=== PATIENT | male | born 1990 | race Caucasian/White ===

== ENCOUNTER 2017-08-19 11:09 | Emergency (ER) | payer OTHER ==
[~2017-08-19] VITALS: Ht 175.3 cm; Wt 72.6 kg
[2017-08-19] MEDS ORDERED: ONDANSETRON ODT8 MG PO (14:57)
[2017-08-19] MEDS ORDERED: PROMETHAZINE HC25 M1 PO (14:57)
== END 2017-08-19 15:46 | disposition home or self-care (01) ==
LOC: ED 11:09
DX: E86.0 Dehydration (principal); K52.9 Noninfective gastroenteritis and colitis, unspecified; F17.200 Nicotine dependence, unspecified, uncomplicated
CPT/HCPCS: 80053; 81001; 83690; 85025; 96374; 96375; 99283; J2405; J2550; J7030

== ENCOUNTER 2017-08-24 11:29 | Inpatient (IN) | payer OTHER ==
[~2017-08-24] VITALS: Ht 175.3 cm; Wt 72.1 kg
[~2017-08-24 11:29] MED LIST: ONDANSETRON ODT8 MG PO; PROMETHAZINE HC25 M1 PO
[2017-08-26] MEDS ORDERED: IBUPROFEN600 MG PO (11:15)
[2017-08-26] MEDS ORDERED: HYDROCODON-ACE1 EA10 PO (11:15)
[2017-08-26] MEDS ORDERED: MAPAP325 MG PO (11:15)
--- NOTE | 2017-08-30 14:12 | HP ---
[facility] [address], [place] [address] Signed ADMISSION DATE: 08/24/2017 REASON FOR ADMISSION: Acute acalculous cholecystitis. HISTORY OF PRESENT ILLNESS: This 27-year-old white man has had about 2 weeks of epigastric and right subcostal pain worsened after eating. He was seen in the emergency room today and evaluated by Dr. Pelayo. An ultrasound was performed showing findings consistent with acute acalculous cholecystitis including pericholecystic fluid, a laminated thickened gallbladder wall, but no evidence of stones. There was some minimal sludge. The patient and his tell me that he was seen about a week ago in the emergency room with dehydration and considered likely to have a viral illness myesha to those suffered by other family members at that time. His previous symptoms over the past 2 weeks, he has had some diarrhea it is noted, but no myalgias, fever, or other problem. His dominant problem even over the past 2 weeks has been epigastric and right subcostal pain. He denies subscapular pain on the right side. He is admitted for further evaluation and care. PAST MEDICAL HISTORY: Significant for appendectomy, which he tells me I performed when he was a child. As best he recalls, he was about 8 years old, which would be about 19 years ago. I must say time flies. I did not recognize him from his childhood particularly. He has no other ongoing medical problems and takes no medications. He does use marijuana. He does not smoke and denies alcohol use. Past medical history, in addition to appendectomy, has included kidney stones he says. SOCIAL HISTORY: He is unemployed. He was covered under [employer]. He has, in aggregate five children. His life partner is Kinga Ibanez, who attends to him at this time. His primary provider is Dr. Zach Childress. REVIEW OF SYSTEMS: He denies any shortness of breath or chest pain. He is rather thirsty. He has had no hematemesis or blood per rectum. Denies dysuria or hematuria. Electronically Signed By: GOMEZ STOUT MD 08/30/17 1412 PATIENT NAME: RAMON HORNER HISTORY AND PHYSICAL DATE OF : 86 REPORT #: [id number] PHYSICIAN: GOMEZ STOUT MD PCP: ZACH CHILDRESS REPORT IS CONFIDENTIAL AND NOT TO BE RELEASED WITHOUT AUTHORIZATION [facility] [address], [place] [address] Signed PHYSICAL EXAMINATION: GENERAL: A relatively muscular white man, who does not look systemically toxic at this time. He is rather pale in color and has several tattoos. He shows no evidence of jaundice. Mucous membranes are markedly dry. Trachea is midline. CHEST: Clear. HEART: Regular without murmur. ABDOMEN: Nondistended. There is no sign of ascites. He does have tenderness in the epigastric and right subcostal areas. EXTREMITIES: No clubbing, cyanosis, or edema. LABORATORY DATA: Show white count of 7.3, hematocrit 41.9, platelets 250,000. Electrolytes are normal. Liver enzymes showed bilirubin of 0.5, alkaline phosphatase of 59, AST of 30, ALT 39, alkaline phosphatase of 59. His abdominal ultrasound was performed shows a thickened gallbladder wall, but no evidence of stone. It is uncertain if there is debris within the lumen of the gallbladder. ASSESSMENT: The patient has clinical and ultrasonographic evidence of acute acalculous cholecystitis. He does have clinical dehydration at this time as well. We discussed in detail the pathophysiology of biliary disease both calculous and acalculous. I would recommend fluid resuscitation, parenteral pain medication, avoidance of oral intake other than some sips of liquids for comfort, anticipating more fluid resuscitation and cholecystectomy preferred by a laparoscopic approach. The risks of bleeding, infection, bile duct injury, need for open procedure, and of course failure to cure of his symptoms were reviewed in detail. It is more likely that he has had acute cholecystitis for the past 2 weeks and the flu as was presumed previously. We will anticipate operative intervention when the patient adequately resuscitated. Gomez Stout MD JM/MODL /[id number] Electronically Signed By: GOMEZ STOUT MD 08/30/17 1412 PATIENT NAME: RAMON HORNER HISTORY AND PHYSICAL DATE OF : [birth year] REPORT #: [id number] PHYSICIAN: GOMEZ STOUT MD PCP: ZACH CHILDRESS REPORT IS CONFIDENTIAL AND NOT TO BE RELEASED WITHOUT AUTHORIZATION [facility] [address] [place] [id number] Signed cc: Zahc Pelayo DO Copies: ZACH CHILDRESS JAMES ALAN DO ~ Electronically Signed By: GOMEZ STOUT MD 08/30/17 1412 PATIENT NAME: RAMON HORNER HISTORY AND PHYSICAL DATE OF : [birth year] REPORT #: [id number] PHYSICIAN: GOMEZ STOUT MD PCP: ZACH CHILDRESS REPORT IS CONFIDENTIAL AND NOT TO BE RELEASED WITHOUT AUTHORIZATION
--- NOTE | 2017-08-30 14:12 | DS ---
[facility] [address] [place], [place] [address] Signed ADMISSION DATE: 08/24/2017 DISCHARGE DATE: 08/26/2017 REASON FOR ADMISSION: This 27-year-old white man was admitted to the emergency room on August 24 with severe right upper abdominal pain. He has had pain more or less for over 2 weeks. He was thought to have the flu initially. His evaluation in the emergency room included gallbladder ultrasound confirming marked inflammation and edema of the gallbladder wall, but no stones. There is pericholecystic fluid as well. There is no sign of ductal dilatation. He was admitted for further evaluation and care, which included intravenous antibiotic administration, parental pain medication, fluid resuscitation, and anticipating cholecystectomy. PAST MEDICAL HISTORY: Includes appendectomy, which I performed at age 8 (19 years ago). He is otherwise in good health. PERTINENT PHYSICAL EXAMINATION: GENERAL: Muscular white male with multiple tattoos, accompanied by his significant other girlfriend. HEENT: Trachea is midline. CHEST: Clear. HEART: Regular without murmur. ABDOMEN: Nondistended. Marked tenderness is noted in the epigastric and right subcostal area. There is no ascites. EXTREMITIES: Show no clubbing, cyanosis, or edema. LABORATORY DATA: His white count was only mildly elevated to 11.5. Bilirubin was normal. Alkaline phosphatase was normal. AST and ALT slightly elevated. HOSPITAL COURSE: He was fluid resuscitated, given intravenous antibiotics and on August 25, 2017 on Sunday, he underwent laparoscopic cholecystectomy with intraoperative cholangiogram. He was found to have a markedly inflamed and thickened gallbladder with pericholecystic inflammation. The liver was normal. The cholangiogram was normal. The gallbladder once opened showed chronic and subacute inflammatory change of the mucosa, but no sign of stones or neoplasm. His postoperative course was completely unremarkable. He is able to eat solid food soon after operation. By day of discharge, he is ambulating well and tolerating a regular Electronically Signed By: GOMEZ STOUT MD 08/30/17 1412 PATIENT NAME: RAMON HORNER DISCHARGE SUMMARY DATE OF : 86 REPORT #: [id number] PHYSICIAN: GOMEZ STOUT MD PCP: ARIANA MARES REPORT IS CONFIDENTIAL AND NOT TO BE RELEASED WITHOUT AUTHORIZATION [facility] [address] [place], [place] [address] Signed diet. Incisions are healing nicely. He is having no problems. DISCHARGE MEDICATIONS: His discharge medications will include: 1. [place] 5/325, 1 to 2 p.o. q.4 hours p.r.n. pain, #10. 2. Ibuprofen 600 mg p.o. q.6 hours p.r.n. pain, #60. 3. Tylenol 650 mg p.o. q.6 hours p.r.n., #30. He will likely be able to discontinue Zofran and promethazine, which were prescribed previously for his nausea problem. DISCHARGE DIAGNOSES: 1. Acute acalculous cholecystitis, status post laparoscopic cholecystectomy with intraoperative cholangiogram on august 26, 2017. 2. Distant history of appendectomy (open appendectomy, age 8). FOLLOWUP PLAN: He is to return to see me in approximately 4 weeks or so. He is asked to avoid lifting more than 20 pounds for the next 2 weeks. He is permitted to shower tomorrow. We will keep Steri-Strips on. Gomez Stout MD JM/MODL /[id number] cc: FRANCISCO Bustos Dr. Copies: SAURABH BRIONES Electronically Signed By: GOMEZ STOUT MD 08/30/17 1412 PATIENT NAME: RAMON HORNER DISCHARGE SUMMARY DATE OF : 86 REPORT #: [id number] PHYSICIAN: GOMEZ STOUT MD PCP: ARIANA MARES REPORT IS CONFIDENTIAL AND NOT TO BE RELEASED WITHOUT AUTHORIZATION [facility] [address] [place], [place] [address] Signed MUNDO KHOURY Electronically Signed By: GOMEZ STOUT MD 08/30/17 1412 PATIENT NAME: RAMON HORNER DISCHARGE SUMMARY DATE OF : [birth year] REPORT #: [id number] PHYSICIAN: GOMEZ STOUT MD PCP: ARIANA MARES REPORT IS CONFIDENTIAL AND NOT TO BE RELEASED WITHOUT AUTHORIZATION
--- NOTE | 2017-08-30 14:12 | OR ---
[facility] [address] [place], [place] [address] Signed DATE OF OPERATION: 08/25/2017 SURGEON: Gomez Stout MD PREOPERATIVE DIAGNOSIS: Acute acalculous cholecystitis. POSTOPERATIVE DIAGNOSIS: Acute acalculous cholecystitis. PROCEDURES: 1. Laparoscopic cholecystectomy with intraoperative cholangiogram. 2. Laparoscopic lysis of adhesions. 3. Surgeon-directed fluoroscopy. ANESTHESIA: General endotracheal, Gomez Reese CRNA and local 10 mL of 0.25% Marcaine with epinephrine. INDICATION: This 27-year-old white male was admitted through the emergency room yesterday with severe right upper abdominal pain. He has had pain and problems for the past 2 weeks, initially thought likely to the flu. The gallbladder ultrasound performed in his evaluation in the emergency room confirmed an edematous gallbladder with pericholecystic fluid, but no stones and possible sludge. The liver enzymes were relatively normal. He was given intravenous fluids, parenteral pain medication, IV antibiotics and so forth and is admitted at this time to undergo cholecystectomy preferred by laparoscopic approach. The risks of bleeding, infection, bile duct injury, need for open procedure, failure to cure his symptoms and other unforeseen complications were reviewed in detail with him and his significant other. He wishes to proceed. FINDINGS: Indeed, the gallbladder was tensed and distended and acutely inflamed. There was pericholecystic fluid. The liver itself was normal. Impressive edema of the infundibulum of the gallbladder was noted. The gallbladder once excised showed chronic inflammatory changes in the mucosa, but no sign of stones or neoplasm. Intraoperative cholangiogram was normal. There were no other findings of concern, though he did have omental adhesions in the area of the right lower abdomen related to prior appendectomy I performed on him nearly 20 years ago. These were taken down with sharp dissection. Electronically Signed By: GOMEZ STOUT MD 08/30/17 1412 PATIENT NAME: RAMON HORNER OPERATIVE REPORT DATE OF : 86 REPORT #: [id number] PHYSICIAN: GOMEZ STOUT MD PCP: ARIANA MARES REPORT IS CONFIDENTIAL AND NOT TO BE RELEASED WITHOUT AUTHORIZATION [facility] [address] [facility] [place] [place] [address] Signed DESCRIPTION OF PROCEDURE: The patient was brought to the operating room, given a general endotracheal anesthetic. Preoperative antibiotic Ancef was given by the inspector metal fabricating. Sequential compression device stockings were in place and heparin subcutaneously administered. After satisfactory general endotracheal anesthesia, the abdomen was clipped and prepared with a chlorhexidine solution and draped sterilely. An infraumbilical incision was made and using an open Irving cannula technique, pneumoperitoneum was achieved to a level of 14 mmHg of carbon dioxide gas. Intraabdominal inspection showed no sign of ascites or carcinomatosis. The gallbladder was tensed and distended and quite obviously inflamed. The liver was entirely normal. Three additional trocars were placed in usual configuration in the subxiphoid, right midclavicular line and anterior axillary line. Prior to placement of the right-sided trocars omental adhesions, which were adherent to his right lower abdominal incision from the past were taken down with sharp dissection freeing the field for safe placement of the trocars. The gallbladder was tensed, but was able to be grasped and elevated cephalad. The marked inflammation and edema of the infundibulum were noted. The infundibulum was grasped and retracted laterally and using blunt and electrocautery dissection, the triangle of Calot was dissected free. Impressive amount of inflammatory edema of the neck of the gallbladder was noted. Ultimately, the cystic duct was well identified. A clip was applied across gallbladder cystic duct junction and a transverse choledochotomy made in the cystic duct. Retrograde milking of the duct showed no sign of stone or other abnormality. An Silveira-type cholangiocatheter was passed in the cystic duct and using surgeon-directed fluoroscopy, intraoperative cholangiography was undertaken showing free flow of contrast in biliary tree with prompt emptying into the duodenum. Good retrograde filling of the proximal biliary tree was noted. There was no sign of filling defect or biliary anomaly. The catheter was removed and the cystic duct was triply clipped and divided. The gallbladder was dissected free in a retrograde fashion using electrocautery. The gallbladder was extracted through the infraumbilical port site without problem, opened on the back table and found to have no stones or even sludge, but inflammatory changes of the mucosa. There was no sign of neoplasm. Irrigation was undertaken in subhepatic space. There was no sign of bile leak, bleeding, or other problems. Excess irrigation fluid was suctioned free. The trocars were removed under direct visualization. Given his relatively thin body habitus, easy closure of the infraumbilical fascial incision was undertaken. All wounds were infiltrated with 0.25% Marcaine with epinephrine for postoperative analgesic benefit. The skin was closed with interrupted 3-0 Vicryl. The patient then had a fair amount of coughing and straining, though still intubated and palpably I could feel the sutures at the umbilicus "pop." This was quite suggestive obviously of closure dehiscence related to excessive straining. On that basis, the Electronically Signed By: GOMEZ STOUT MD 08/30/17 1412 PATIENT NAME: RAMON HORNER OPERATIVE REPORT DATE OF : [birth year] REPORT #: [id number] PHYSICIAN: GOMEZ STOUT MD PCP: ARIANA MARES REPORT IS CONFIDENTIAL AND NOT TO BE RELEASED WITHOUT AUTHORIZATION [address] [place], [place] [address] Signed patient was given anesthetic again, as he was still intubated and relaxation and examination of the infraumbilical wound undertaken. The sutures were removed and complete dehiscence of the fascial edges was noted. The herniated omentum was replaced into the abdomen. The fascial edges were reapproximated with interrupted 0 Vicryl suture and subcutaneous layer reapproximated with interrupted 3-0 Vicryl and skin closed once again with interrupted 2-0 Vicryl. Steri-Strips were applied. The patient was extubated more deeply without coughing and had no further straining and no further problem. The patient was ultimately taken to recovery room in good condition having suffered no complications. Sponge, needle, and instrument counts reported as correct x3. MD VINCE Andrews/NEVIN /[id number] cc: Dc Pelayo DO Copies: DC BRIONES JAMES ALAN DO ~ Electronically Signed By: GOMEZ STOUT MD 08/30/17 1412 PATIENT NAME: RAMON HORNER OPERATIVE REPORT DATE OF : 86 REPORT #: [id number] PHYSICIAN: GOMEZ STOUT MD PCP: ARIANA MARES REPORT IS CONFIDENTIAL AND NOT TO BE RELEASED WITHOUT AUTHORIZATION
== END 2017-08-26 12:00 | disposition home or self-care (01) | DRG 419 ==
LOC: ED 11:29 → MS 15:31
PROVIDERS: ADMIT Surgery
PROC: 0FT44ZZ Resection of Gallbladder, Percutaneous Endoscopic Approach (ICD-10-PCS; principal; 2017-08-25 10:00)
PROC: 0DNU4ZZ Release Omentum, Percutaneous Endoscopic Approach (ICD-10-PCS; principal; 2017-08-25 10:00)
PROC: BF14YZZ Fluoroscopy of Gallbladder, Bile Ducts and Pancreatic Ducts using Other Contrast (ICD-10-PCS; principal; 2017-08-25 10:00)
DX: K80.00 Calculus of gallbladder with acute cholecystitis without obstruction (principal); K66.0 Peritoneal adhesions (postprocedural) (postinfection); E86.0 Dehydration
CPT/HCPCS: 00790; 74300; 76705; 80053; 81001; 83690; 85025; 87205; 87493; 88304; 94762; 96374; 96375; 99285; J0330; J0690; J0780; J1100; J1170; J1644; J1885; J2250; J2270; J2405; J2543; J2550; J2704; J2710; J2765; J3010; J7120; Q9967

== ENCOUNTER 2017-09-21 08:59 | Emergency (ER) | payer OTHER ==
[~2017-09-21] VITALS: Ht 177.8 cm; Wt 74.8 kg
[~2017-09-21 08:59] MED LIST changes: +HYDROCODON-ACE1 EA10 PO; +IBUPROFEN600 MG PO; +MAPAP325 MG PO
== END 2017-09-21 09:19 | disposition home or self-care (01) ==
LOC: ED 08:59
DX: M54.5 Low back pain (principal)

== ENCOUNTER 2018-01-01 08:45 | Day surgery (SDC) | payer OTHER ==
[~2018-01-01] VITALS: Ht 170.2 cm; Wt 77.1 kg
--- NOTE | ~2018-01-01 | OR ---
[facility] [address] [place], [place] [address] Draft DATE OF OPERATION: 01/01/2018 SURGEON: Pipo Aquino MD PREOPERATIVE DIAGNOSIS: Mass left index finger. POSTOPERATIVE DIAGNOSIS: Mass left index finger, suspect epithelial inclusion cyst. ANESTHESIA: Alorton block. SPECIMENS AND COMPLICATIONS: There were no complications. We did send the excised mass as a single specimen. WHAT WAS DONE: The patient was taken to the operating room. After anesthesia was induced and the patient gently sedated, he was positioned, prepped and draped in a routine sterile fashion. Using a modified Ibrahima incision over the middle phalanx of the left index finger based on the ulnar side, the skin was divided sharply. A full-thickness flap was then raised. The ulnar neurovascular bundle was identified and gently retracted and the mass itself appeared to be an epithelial inclusion cyst. We then able to nucleate the cyst from the surrounding tissue and delivered it off the field. The wound was gently irrigated, closed in standard fashion. A sterile dressing applied. He was awakened and taken to the recovery room where he arrived in stable condition. Counts were correct and antibiotic protocols were followed. MD CONTRERAS Wood/MODL /[id number] PATIENT NAME: RAMON HORNER OPERATIVE REPORT DATE OF : [birth year] REPORT #: [id number] PHYSICIAN: PIPO AQUINO MD PCP: MUNDO KHOURY REPORT IS CONFIDENTIAL AND NOT TO BE RELEASED WITHOUT AUTHORIZATION [address] [address] Draft Copies: ~ PATIENT NAME: RAMON HORNER OPERATIVE REPORT DATE OF : 86 REPORT #: [id number] PHYSICIAN: PIPO AQUINO MD PCP: MUNDO KHOURY REPORT IS CONFIDENTIAL AND NOT TO BE RELEASED WITHOUT AUTHORIZATION
--- NOTE | 2018-01-01 12:30 | NUR ---
01/01/18 1230 Mi Agustin 1218 PT ARRIVED IN PACU VERY SLEEPY. AROUSES TO VERBAL AND TACTILE STIMULI, THEN FALLS RIGHT BACK TO SLEEP.
== END 2018-01-01 13:00 | disposition home or self-care (01) ==
LOC: DS 08:45 → OPS 08:45
PROVIDERS: Orthopaedic Surgery
PROC: 0HBGXZZ Excision of Left Hand Skin, External Approach (ICD-10-PCS; principal; 2018-01-01 10:15)
DX: L72.0 Epidermal cyst (principal)
CPT/HCPCS: 00400; 88304; J0690; J1885; J2704; J3010; J7120

== ENCOUNTER → 2018-02-09 | Emergency (ER) | payer OTHER ==
[~2018-02-09] VITALS: Ht 170.2 cm; Wt 77.1 kg
[~2018-02-09] MED LIST changes: +DOXYCYCLINE HY100 MG PO; +NORCO 5-325 TA1 EACH PO
--- OUTSIDE RECORDS SUMMARY | ~2018-02-09 | XMS | Clinical Summary ---
Demographics + + + | Address | [address] | | | [place] [address] | + + + | Home Phone | | + + + | Preferred Language | Unknown | + + + | Marital Status | | + + + | Quaker Affiliation | Unknown | + + + | Race | Unknown | + + + | Ethnic Group | Unknown | + + + Author + + + | Author | [facility] | | | and [place] | + + + | Organization | [facility] | | | and [place] | + + + | Address | Unknown | + + + | Phone | Unavailable | + + + Support + + +---------+ + | Name | Relationship | Address | Phone | + + +---------+ + | Ender Ibanezina | ECON | Unknown | | + + +---------+ + Care Team Providers + +------+ + | Care Rn Lpn Lvn Name | Role | Phone | + +------+ + PP | Unavailable | + +------+ + Allergies Not on File Current Medications Not on file Active Problems Not on file Social History + +-------+ +--------+------+ | Tobacco [...] on file | | + + + Plan of Treatment + + + + + | Health Maintenance | Due Date | Last Done | Comments | + + + + + | Vaccine: | | | | | Dtap/Tdap/Td (1 - | 8 | | | | Tdap) | | | | + + + + + | Vaccine: Influenza | | | | | (#1) | 8 | | | + + + + + Results Not on filefrom Last 3 Months"
--- OUTSIDE RECORDS SUMMARY | ~2018-02-09 | XMS | Clinical Summary ---
Demographics + + + | Address | [address] | | | [place] [address] | + + + | Home Phone | | + + + | Preferred Language | Unknown | + + + | Marital Status | | + + + | Church Affiliation | Unknown | + + + | Race | Unknown | + + + | Ethnic Group | Unknown | + + + Author + + + | Author | [facility] | | | and [place] | + + + | Organization | [facility] | | [...] Team Providers + +------+ + | Care Beverage Manager Name | Role | Phone | + [...]
== END ==
LOC: ED 17:24
DX: N45.1 Epididymitis (principal); Z87.891 Personal history of nicotine dependence
CPT/HCPCS: 76870; 81001; 99284

== ENCOUNTER 2018-07-07 04:31 | Emergency (ER) | payer OTHER ==
[~2018-07-07] VITALS: Ht 170.2 cm; Wt 77.1 kg
== END 2018-07-07 06:32 | disposition home or self-care (01) ==
LOC: ED 04:31
PROC: 0WQ2XZZ Repair Face, External Approach (ICD-10-PCS; principal; 2018-07-07)
DX: R56.9 Unspecified convulsions (principal); S01.21XA Laceration without foreign body of nose, initial encounter; Z87.442 Personal history of urinary calculi; Z87.891 Personal history of nicotine dependence; W17.89XA Other fall from one level to another, initial encounter; Z23 Encounter for immunization
CPT/HCPCS: 12011; 70450; 70486; 80053; 85025; 90471; 90715; 99284-25; G0480

== ENCOUNTER 2018-08-30 19:25 | Emergency (ER) | payer OTHER ==
[~2018-08-30] VITALS: Ht 170.2 cm; Wt 83.9 kg
[2018-08-30] MEDS ORDERED: IBUPROFEN200 M1 PO (20:04)
[2018-08-30] MEDS ORDERED: TYLENOL325 MG PO (20:04)
== END 2018-08-30 22:58 | disposition home or self-care (01) ==
LOC: ED 19:25
DX: R51 Headache (principal); Z87.442 Personal history of urinary calculi; Z87.891 Personal history of nicotine dependence; Z79.899 Other long term (current) drug therapy
CPT/HCPCS: 96374; 96375; 99283-25; J0780; J1100; J1200; J1885; J7030

== ENCOUNTER 2019-09-01 11:26 | Emergency (ER) | payer OTHER ==
[~2019-09-01] VITALS: Ht 170.2 cm; Wt 83.9 kg
[~2019-09-01 11:26] MED LIST changes: +IBUPROFEN200 M1 PO; +TYLENOL325 MG PO
[2019-09-01] MEDS ORDERED: REGLAN10 MG PO (15:43)
[2019-09-01] MEDS ORDERED: IMITREX6 MG/0.5 M SUB-Q (15:43)
== END 2019-09-01 15:50 | disposition home or self-care (01) ==
LOC: ED 11:26
DX: G43.909 Migraine, unspecified, not intractable, without status migrainosus (principal)
CPT/HCPCS: 96361; 96374; 96375; 99283-25; J1200; J1885; J2405; J2765; J3030; J7030

== ENCOUNTER → 2019-11-30 | Emergency (ER) | payer OTHER ==
[~2019-11-30] VITALS: Ht 170.2 cm; Wt 81.7 kg
[~2019-11-30] MED LIST changes: +IMITREX6 MG/0.5 M SUB-Q; +KETOROLAC TROME10 MG PO; +ONDANSETRON ODT4 MG PO; +OXYCODONE HCL5 MG PO; +OXYCODONE-ACET1 EAC1 PO; +REGLAN10 MG PO; +TAMSULOSIN HCL0.4 MG PO
--- OUTSIDE RECORDS SUMMARY | ~2019-11-30 | XMS | Encounter Summary ---
Demographics + + + | Address | [address] | | | [place] [address] | + + + | Home Phone | | + + + | Preferred Language | Unknown | + + + | Marital Status | | + + + | Taoist Affiliation | Unknown | + + + | Race | Unknown | + + + | Ethnic Group | Unknown | + + + Author + + + | Author | [facility] | | | and [place] | + + + | Organization | [facility] | | | and [place] | + + + | Address | Unknown | + + + | Phone | Unavailable | + + + Support + + + + + | Name | Relationship | Address | Phone | + + + + + | Kinga Roman | ECON | [address] | | | | | [place] [address] | | + + + + + Care Team Providers + +------+ + | Care Principal Technical Writer Name | Role | Phone | + +------+ + PCP | Unavailable | + +------+ + Encounter Details +--------+ + + + + | Date | Type | Department | Care Team | Description | +--------+ + + + + | 10/27/ | Hospital | [facility] | Marita Chan, | | | 2013 | Encounter | [facility] | [address] | | | | | CENTER [address] | [place] | | | | | [place] | [address] | | | | | [address] | | | | | | [phone] | | | +--------+ + + + + Social History + +-------+ +--------+------+ | Tobacco Use | Types | Packs/Day | Years | Date | | | | | Used | | + +-------+ +--------+------+ | Never Assessed | | | | | + +-------+ +--------+------+ + + + | Sex Assigned at | Date Recorded | | | | + + + | Not on file | | + + + + + + + | Job Start Date | Occupation | Industry | + + + + | Not on file | Not on file | Not on file | + + + + + + + + | Travel History | Travel Start | Travel End | + + + + + + | No recent travel history available. | + + documented as of this encounter Plan of Treatment Not on filedocumented as of this encounter Visit Diagnoses Not on filedocumented in this encounter"
--- OUTSIDE RECORDS SUMMARY | ~2019-11-30 | XMS | Encounter Summary ---
Demographics + + + | Address | [address] | | | [place] [address] | + + + | Home Phone | | + + + | Preferred Language | Unknown | + + + | Marital Status | | + + + | Hinduism Affiliation | Unknown | + + + | Race | Unknown | + + + | Ethnic Group | Unknown | + + + Author + + + | Author | [facility] | | | and [place] | + + + | Organization | [facility] | | | and [...] | | | [place] [address] | | + + + + + Care Team Providers + +------+ + | Care Enterprise Engineer Name | Role | Phone | + +------+ + PCP | Unavailable | + +------+ + Encounter Details +--------+ + + + + | Date | Type | Department | Care Team | Description | +--------+ + + + + | 07/24/ | Hospital | [facility] | Conversion | Seizure (HCC); | | 2019 | Encounter | CENTER | Transaction, | Syncope, unspecified | | | | NEURODIAGNOSTICS | Provider Unknown | syncope type | | | | [address] | | | | | | [place], [place] | (Fax) | | | | | [address] | | | | | | [phone] | | | +--------+ + + + [...] filedocumented as of this encounter Visit Diagnoses + + | Diagnosis | + + | Seizure (HCC) Other convulsions | + + | Syncope, unspecified syncope type | + + documented in this encounter"
--- OUTSIDE RECORDS SUMMARY | ~2019-11-30 | XMS | Clinical Summary ---
Demographics + + + | Address | [address] | | | [place] [address] | + + + | Home Phone | | + + + | Preferred Language | Unknown | + + + | Marital Status | | + + + | Rastafarian Affiliation | Unknown | + + + | Race | Unknown | + + + | Ethnic Group | Unknown | + + + Author + + + | Author | [facility] | | | and [place] | + + + | Organization | [facility] | | | [...] | | | [place] [address] | | + + + + + Care Team Providers + +------+ + | Care Metal Buffer Name | Role | Phone | + +------+ + | Debbie Mclain MD | PCP | | + +------+ + Allergies No Known Allergies Medications + + + +---------+------+------+-------+ | Medication | Sig | Dispensed | Refills | Star | End | Statu | | | | | | t | Date | s | | | | | | Date | | | + + + +---------+------+------+-------+ | ibuprofen | take 1 tablet by | | 0 | 02/2 | | Activ | | (ADVIL,MOTRIN) 600 | mouth with food or | | | 5/20 | | e | | MG tablet | milk three times a | | | 19 | | | | | day if needed | | | | | | + + + +---------+------+------+-------+ Active Problems Not on file Family History + +------+--------+ + | Relation | Name | Status | Comments | + +------+--------+ + | Father | | Alive | | + +------+--------+ + | Mother | | Alive | | + +------+--------+ + Social History + +-------+ +--------+------+ | Tobacco Use | Types | Packs/Day | Years | Date | | | | | Used | | + +-------+ +--------+------+ | Former Smoker | | | | | + +-------+ [...] recent travel history available. | + + Last Filed Vital Signs + + + + + | Vital Sign | Reading | Time Taken | Comments | + + + + + | Blood Pressure | 113/76 | 11/28/2018 2:04 PM | | | | | PDT | | + + + + + | Pulse | 75 | 11/28/2018 2:04 PM | | | | | PDT | | + + + + + | Temperature | - | - | | + + + + + | Respiratory Rate | - | - | | + + + + + | Oxygen Saturation | - | - | | + + + + + | Inhaled Oxygen | - | - | | | Concentration | | | | + + + + + | Weight | 82.6 kg (182 lb 3.2 | 11/28/2018 2:04 PM | | | | oz) | PDT | | + + + + + | Height | 170.2 cm (5' 7") | 11/28/2018 2:04 PM | | | | | PDT | | + + + + + | Body Mass Index | 28.54 | 11/28/2018 2:04 PM | | | | | PDT | | + + + + + Plan of Treatment + + + + + | Health Maintenance | Due Date | Last Done | Comments | + + + + + | Vaccine: | | | | | Dtap/Tdap/Td (1 - | 0 | | | | Tdap) | | | | + + + + + | Vaccine: Influenza | | | | | (Season Ended) | 0 | | | + + + + + Results Not on filefrom Last 3 Months Insurance + +--------+ +--------+ +---------+--------+ | Payer | Benefi | Subscriber | Effect | Phone | Address | Type | | | t Plan | ID | alfred | | | | | | / | | Dates | | | | | | Group | | | | | | + +--------+ +--------+ +---------+--------+ | [employer] | [employer] | [id number] | | [phone] | | Medica | | MEDICAID HMO | HEALTH | | [phone] | 1 | | id | | | MDCD | | esent | | | | | | [place]MO [place] | | | | | | + +--------+ +--------+ +---------+--------+ + +--------+ +--------+ + + | Guarantor Name | Accoun | Relation to | Date | Phone | Billing Address | | | t Type | Patient | of | | | | | | | | | | + +--------+ +--------+ + + | Omar Roman | Person | Self | [birth year] | [address] | | [place] | al/Fam | | 1990 | [phone] | [place] [address] | | | ignacio | | | 4 (Home) | | + +--------+ +--------+ + + Advance Directives + + + + + | Type | Date Recorded | Patient | Explanation | | | | Emergency Medicine Specialist | | + + + + + | Power of | | | | | Suction Drum Drier Operator | | | | + + + + + | Advance | | | | | Directive | | | | + + + + +
--- OUTSIDE RECORDS SUMMARY | ~2019-11-30 | XMS | Encounter Summary ---
Demographics + + + | Address | [address] | | | [place] [address] | + + + | Home Phone | | + + + | Preferred Language | Unknown | + + + | Marital Status | | + + + | Anabaptist Affiliation | Unknown | + + + | Race | Unknown | + + + | Ethnic Group | Unknown | + + + Author + + + | Author | [facility] | | | and [place] | + + + | Organization | [facility] | | | [...] | | | [place] [address] | | + + + + + Care Team Providers + +------+ + | Care Tree Inspector Name | Role | Phone | + +------+ + | Debbie Mclain MD | PCP | | + +------+ + Encounter Details +--------+ + + + + | Date | Type | Department | Care Team | Description | +--------+ + + + + | 02/07/ | Orders Only | [facility] | Ronnie Stearns, | Other symptoms and | | 2019 | | NEUROLOGY [address] | MD [address] | signs involving | | | | [address] | [address] | cognitive functions | | | | [place] | [place] [address] | and awareness | | | | [address] | [phone] | | | | | [phone] | | | +--------+ + + + [...] as of this encounter Plan of Treatment + +------+--------+ + + | Name | Type | Priori | Associated Diagnoses | Order Schedule | | | | ty | | | + +------+--------+ + + | TSH | Lab | Routin | Other symptoms and | Expected: | | | | e | signs involving | 09/03/2018, Expires: | | | | | cognitive functions | 09/03/2019 | | | | | and awareness | | + +------+--------+ + + | Vitamin B-12 and | Lab | Routin | Other symptoms and | Expected: | | Folate | | e | signs involving | 09/03/2018, Expires: | | | | | cognitive functions | 09/03/2019 | | | | | and awareness | | + +------+--------+ + + documented as of this encounter Visit Diagnoses + + | Diagnosis | + + | Other symptoms and signs involving cognitive functions and awareness | + + documented in this encounter"
--- OUTSIDE RECORDS SUMMARY | ~2019-11-30 | XMS | Encounter Summary ---
Demographics + + + | Address | [address] | | | [place] [address] | + + + | Home Phone | | + + + | Preferred Language | Unknown | + + + | Marital Status | | + + + | Synagogue Affiliation | Unknown | + + + | Race | Unknown | + + + | Ethnic Group | Unknown | + + + Author + + + | Author | [facility] | | | and [place] | + + + | Organization | [facility] | | | and [...] | | | [place] [address] | | + + + + + Care Team Providers + +------+ + | Care Bus Aide Name | Role | Phone | + +------+ + PCP | Unavailable | + +------+ + Encounter Details +--------+ + + + + | Date | Type | Department | Care Team | Description | +--------+ + + + + | 10/27/ | Hospital | [facility] | Marita Chan, | | | 2013 | Encounter | [facility] | [address] | | | | | [address] | [place] | | | | | [place] | [address] | | | | | [address] | | | | | | [phone] | | | +--------+ + + + [...]
--- OUTSIDE RECORDS SUMMARY | ~2019-11-30 | XMS | Encounter Summary ---
Demographics + + + | Address | [address] | | | [place] [address] | + + + | Home Phone | | + + + | Preferred Language | Unknown | + + + | Marital Status | | + + + | Denominational Affiliation | Unknown | + + + | Race | Unknown | + + + | Ethnic Group | Unknown | + + + Author + + + | Author | [facility] | | | and [place] | + + + | Organization | [facility] | | | and [...] | | | [place] [address] | | + + + + + Care Team Providers + +------+ + | Care Solar Energy Systems Engineer Name | Role | Phone | + +------+ + | Debbie Mclain MD | PCP | | + +------+ + Reason for Visit + + + | Reason | Comments | + + + | Follow-up | juan r pham's appointment 03/31 | + + + Encounter Details +--------+ + + + + | Date | Type | Department | Care Team | Description | +--------+ + + + + | 03/31/ | Telephone | [facility] | Ronnie Stearns, | Follow-up (cancel | | 2018 | | NEUROLOGY [address] | [address] | today's appointment | | | | [address] | [address] | 03/31) | | | | [place], [place] | [place] [address] | | | | | [address] | [phone] | | | | | [phone] | | | +--------+ + + + [...]
--- OUTSIDE RECORDS SUMMARY | ~2019-11-30 | XMS | Encounter Summary ---
Demographics + + + | Address | [address] | | | [place] [address] | + + + | Home Phone | | + + + | Preferred Language | Unknown | + + + | Marital Status | | + + + | Religion Affiliation | Unknown | + + + | Race | Unknown | + + + | Ethnic Group | Unknown | + + + Author + + + | Author | [facility] | | | and [place] | + + + | Organization | [facility] | | | [...] | | | [place] [address] | | + + + + + Care Team Providers + +------+ + | Care Vending Machine Technician Name | Role | Phone | + +------+ + PCP | Unavailable | + +------+ + Encounter Details +--------+ + + + + | Date | Type | Department | Care Team | Description | +--------+ + + + + | 04/29/ | Hospital | [facility] | Mike Hayward | | | 2014 | Encounter | HOSP[facility] | [address] | | | | | [address] | [address] | | | | | [address] [place] | [place] [address] | | | | | [address] | [phone] | | | | | [phone] | | | +--------+ + + + [...] Not on filedocumented as of this encounter Procedures + +--------+ + + + | Procedure Name | Priori | Date/Time | Associated Diagnosis | Comments | | | ty | | | | + +--------+ + + + | URINALYSIS WITH | STAT | 04/29/2015 | | Results for this | | MICROSCOPIC WITH | | 5:35 AM | | procedure are in the | | CULTURE IF INDICATED | | PST | | results section. | + +--------+ + + + | CBC W/AUTO | STAT | 04/29/2015 | | Results for this | | DIFFERENTIAL | | 5:35 AM | | procedure are in the | | | | PST | | results section. | + +--------+ + + + | COMPREHENSIVE | STAT | 04/29/2015 | | Results for this | | METABOLIC PANEL | | 5:35 AM | | procedure are in the | | | | PST | | results section. | + +--------+ + + + | CT ABDOMEN PELVIS WO | Routin | 04/29/2015 | | Results for this | | CONTRAST | e | 5:18 AM | | procedure are in the | | | | PST | | results section. | + +--------+ + + + documented in this encounter Results Urinalysis with Microscopic with Culture if Indicated (04/29/2015 5:35 AM PST) + + + + + + | Component | Value | Ref Range | Performed | Pathologist | | | | | At | Signature | + + + + + + | Source | Clean Catch / VOID | | EXTERNAL | | | | | | LAB | | + + + + + + | Clarity | HAZY | CLEAR | EXTERNAL | | | | | | LAB | | + + + + + + | Color, | DRK YELLOW | YELLOW | EXTERNAL | | | Urine | | | LAB | | + + + + + + | Specific | 1.02 | 1.005 - 1.030 | EXTERNAL | | | [place], | | | LAB | | | Urine | | | | | + + + + + + | pH, Urine | 6 | 5.0 - 7.0 pH | EXTERNAL | | | | | | LAB | | + + + + + + | Leukocyte | NEGATIVE | NEGATIVE /uL | EXTERNAL | | | Esterase, | | | LAB | | | Urine | | | | | + + + + + + | Nitrite, | NEGATIVE | NEGATIVE | EXTERNAL | | | Urine | | | LAB | | + + + + + + | Protein, | NEGATIVE | NEGATIVE mg/dL | EXTERNAL | | | Urine | | | LAB | | + + + + + + | Glucose, | NORMAL | NORMAL mg/dL | EXTERNAL | | | Urine | | | LAB | | + + + + + + | Reducing | NOT REQUIRED | NEGATIVE | EXTERNAL | | | Substance, | | | LAB | | | UA, POC | | | | | + + + + + + | Ketones, | NEGATIVE | NEGATIVE mg/dL | EXTERNAL | | | Urine | | | LAB | | + + + + + + | Urobilinoge | NORMAL | NORMAL mg/dL | EXTERNAL | | | n, Urine | | | LAB | | + + + + + + | Bilirubin, | NEGATIVE | NEGATIVE mg/dL | EXTERNAL | | | Urine | | | LAB | | + + + + + + | Blood, | 250 | NEGATIVE /uL | EXTERNAL | | | Urine | | | LAB | | + + + + + + | White Blood | 0-2 | </= 5 /HPF | EXTERNAL | | | Cells, | | | LAB | | | Urine | | | | | + + + + + + | RBC COUNT | 20-50 | </= 5 PER HPF | EXTERNAL | | | | | | LAB | | + + + + + + | Bacteria, | NONE SEEN | NONE SEEN /HPF | EXTERNAL | | | UA | | | LAB | | + + + + + + | Culture | NO | | EXTERNAL | | | Indicated | | | LAB | | + + + + + + | Squamous | RARE | /LPF | EXTERNAL | | | Epithelial | | | LAB | | | Cells, | | | | | | Urine | | | | | + + + + + + + + | Specimen | + + | | + + + +---------+ + + | Performing | Address | City/State/Zipcode | Phone Number | | Organization | | | | + +---------+ + + | EXTERNAL LAB | | | | + +---------+ + + Comprehensive Metabolic Panel (04/29/2015 5:35 AM PST) + +-------+ + + + | Component | Value | Ref Range | Performed | Pathologist | | | | | At | Signature | + +-------+ + + + | Sodium | 136 | 132 - 143 | EXTERNAL | | | | | mmol/L | LAB | | + +-------+ + + + | Potassium | 3.8 | 3.3 - 4.9 | EXTERNAL | | | | | mmol/L | LAB | | + +-------+ + + + | Cl | 106 | 95 - 108 mmol/L | EXTERNAL | | | | | | LAB | | + +-------+ + + + | CO2 | 26 | 23 - 34 mmol/L | EXTERNAL | | | | | | LAB | | + +-------+ + + + | Anion Gap | 4 | 7 - 16 | EXTERNAL | | | | | | LAB | | + +-------+ + + + | Calcium | 8.6 | 8.3 - 10.0 | EXTERNAL | | | | | mg/dL | LAB | | + +-------+ + + + | Glucose | 97 | 70 - 110 mg/dL | EXTERNAL | | | | | | LAB | | + +-------+ + + + | BUN, Bld | 15 | 5 - 26 mg/dL | EXTERNAL | | | | | | LAB | | + +-------+ + + + | Creatinine | 0.8 | 0.7 - 1.4 mg/dL | EXTERNAL | | | | | | LAB | | + +-------+ + + + | BUN/Creatin | 18.8 | 7.0 - 24.0 | EXTERNAL | | | ine Ratio | | RATIO | LAB | | + +-------+ + + + | GFR | 60 | >=60 | EXTERNAL | | | ESTIMATE | | mL/min/1.73m2 | LAB | | | (REF) | | | | | + +-------+ + + + | Bilirubin, | 0.5 | <=1.2 mg/dL | EXTERNAL | | | Total | | | LAB | | + +-------+ + + + | Protein, | 7.5 | 6.6 - 8.5 g/dL | EXTERNAL | | | Total | | | LAB | | + +-------+ + + + | Albumin | 4.3 | 3.0 - 4.5 g/dL | EXTERNAL | | | | | | LAB | | + +-------+ + + + | Alkaline | 69 | 46 - 116 U/L | EXTERNAL | | | Phosphatase | | | LAB | | + +-------+ + + + | ALT, | 30 | 16 - 63 U/L | EXTERNAL | | | External | | | LAB | | + +-------+ + + + | AST, | 28 | <=38 U/L | EXTERNAL | | | External | | | LAB | | + +-------+ + + + + + | Specimen | + + | | + + + +---------+ + + | Performing | Address | City/State/Zipcode | Phone Number | | Organization | | | | + +---------+ + + | EXTERNAL LAB | | | | + +---------+ + + CBC w/ Auto Differential (04/29/2015 5:35 AM PST) + +-------+ + + + | Component | Value | Ref Range | Performed | Pathologist | | | | | At | Signature | + +-------+ + + + | WBC | 5 | 4.6 - 10.5 | EXTERNAL | | | | | 1000/mm3 | LAB | | + +-------+ + + + | RBC | 5.27 | 4.36 - 5.83 | EXTERNAL | | | | | mil/mm3 | LAB | | + +-------+ + + + | HGB, | 16.8 | 13.1 - 17.4 | EXTERNAL | | | External | | g/dL | LAB | | + +-------+ + + + | HCT, | 47.2 | 39.0 - 51.9 % | EXTERNAL | | | External | | | LAB | | + +-------+ + + + | MCV | 90 | 82 - 96 fl | EXTERNAL | | | | | | LAB | | + +-------+ + + + | MCH | 31.9 | 27.7 - 32.3 pg | EXTERNAL | | | | | | LAB | | + +-------+ + + + | MCHC | 35.6 | 32.0 - 36.9 | EXTERNAL | | | | | g/dL | LAB | | + +-------+ + + + | RDW-CV | 12.9 | <=17.0 % | EXTERNAL | | | | | | LAB | | + +-------+ + + + | RDW-SD | 41.9 | 34.0 - 57.0 fL | EXTERNAL | | | | | | LAB | | + +-------+ + + + | Platelet | 203 | 150 - 450 | EXTERNAL | | | Count | | 1000/mm3 | LAB | | | Plasma | | | | | + +-------+ + + + | MPV | 10.3 | 9.4 - 12.4 FL | EXTERNAL | | | | | | LAB | | + +-------+ + + + | % Segmented | 63.4 | 42.0 - 76.0 % | EXTERNAL | | | | | | LAB | | | Neutrophils | | | | | + +-------+ + + + | % | 24.9 | 20.0 - 40.0 % | EXTERNAL | | | Lymphocytes | | | LAB | | + +-------+ + + + | % Monocytes | 9.5 | 3.0 - 13.0 % | EXTERNAL | | | | | | LAB | | + +-------+ + + + | % | 1.8 | 0.0 - 7.0 % | EXTERNAL | | | Eosinophils | | | LAB | | + +-------+ + + + | % Basophils | 0.4 | 0.0 - 2.0 % | EXTERNAL | | | | | | LAB | | + +-------+ + + + | Absolute | 3.15 | 2.80 - 7.70 | EXTERNAL | | | Neutrophils | | 1000/mm3 | LAB | | + +-------+ + + + | Absolute | 1.24 | 1.20 - 3.30 | EXTERNAL | | | Lymphocytes | | 1000/mm3 | LAB | | + +-------+ + + + | Absolute | 0.47 | 0.00 - 0.80 | EXTERNAL | | | Monocytes | | 1000/mm3 | LAB | | + +-------+ + + + | Absolute | 0.09 | 0.00 - 0.70 | EXTERNAL | | | Eosinophils | | 1000/mm3 | LAB | | + +-------+ + + + | Absolute | 0.02 | 0.00 - 0.20 | EXTERNAL | | | Basophils | | 1000/mm3 | LAB | | + +-------+ + + + | SLIDE | NO | | EXTERNAL | | | REVIEWED | | | LAB | | + +-------+ + + + + + | Specimen | + + | | + + + +---------+ + + | Performing | Address | City/State/Zipcode | Phone Number | | Organization | | | | + +---------+ + + | EXTERNAL LAB | | | | + +---------+ + + CT Abdomen Pelvis wo Contrast (04/29/2015 5:18 AM PST) + + | Specimen | + + | | + + + + + | Narrative | Performed At | + + + | ORIGINAL CT OF THE ABDOMEN AND PELVIS WITHOUT CONTRAST: | | | HISTORY: Abdominal pain. TECHNIQUE: 5-mm axial slices were | | | acquired through the abdomen and pelvis without contrast. | | | COMPARISON: April 13, 2009. FINDINGS: Heart size is normal. | | | Lung bases are clear. No pericardial or pleural effusion. | | | Evaluation of abdominal viscera is limited due to the lack of | | | intravenous contrast. 3-mm hypodensity near the liver dome is noted | | | on today's study, image #27 of series #3. This likely represents a | | | small cyst. A 14-mm subcapsular hypodensity in the posterior right | | | liver lobe on image #49. Retrospectively this is unchanged compared | | | to the prior study and the stability is consistent with a benign | | | process. The gallbladder, pancreas and spleen are unremarkable. | | | Adrenal glands are symmetric. The inferior pole of the right | | | kidney contains a 3.5 mm stone. This stone previously measured 1 mm. | | | The other right-sided renal stones seen on the prior study are no | | | longer within the kidney. No right ureterolith is identified. The | | | left kidney has a 1 mm stone centrally and at least two 1 mm stones | | | in the inferior pole. There are several additional faint | | | hyperdensities which are nonspecific and may represent early stone | | | formation. No hydronephrosis, no hydroureter. The bladder is | | | decompressed. There is a 3-mm calcification within the distal penis | | | in the expected region of the urethra. A stone within the urethra | | | should be considered. Prostate gland and seminal vesicles are age | | | appropriate. The bowel gas pattern is nonobstructive. Aorta is | | | normal in course and caliber. No pathologically enlarged lymph nodes. | | | No acute bone process. IMPRESSION: 1. Bilateral | | | nephrolithiasis without evidence of obstruction. 2. Benign appearing | | | liver hypodensities. Read By: | | | EDER STERN MD Released By: EDER STERN MD Date: | | | 04/29/2015 09:49 | | + + + + + | Procedure Note | + + | Robles, Rad Results In - 05/02/2017 8:[address] PM [address] OF THE ABDOMEN AND | | PELVIS WITHOUT CONTRAST: HISTORY:Abdominal pain. TECHNIQUE:5-mm axial slices were | | acquired through the abdomen and pelvis without contrast. COMPARISON:April 13, 2009. | | FINDINGS:Heart size is normal. Lung bases are clear. No pericardial or pleural effusion. | | Evaluation of abdominal viscera is limited due to the lack of intravenous contrast. | | 3-mm hypodensity near the liver dome is noted on today's study, image #27 of series #3. | | This likely represents a small cyst. A 14-mm subcapsular hypodensity in the posterior | | right liver lobe on image #49. Retrospectively this is unchanged compared to the prior | | study and the stability is consistent with a benign process. The gallbladder, pancreas | | and spleen are unremarkable. Adrenal glands are symmetric. The inferior pole of the | | right kidney contains a 3.5 mm stone. This stone previously measured 1 mm. The other | | right-sided renal stones seen on the prior study are no longer within the kidney. No | | right ureterolith is identified. The left kidney has a 1 mm stone centrally and at | | least two 1 mm stones in the inferior pole. There are several additional faint | | hyperdensities which are nonspecific and may represent early stone formation. No | | hydronephrosis, no hydroureter. The bladder is decompressed. There is a 3-mm | | calcification within the distal penis in the expected region of the urethra. A stone | | within the urethra should be considered. Prostate gland and seminal vesicles are age | | appropriate. The bowel gas pattern is nonobstructive. Aorta is normal in course and | | caliber. No pathologically enlarged lymph nodes. No acute bone process. IMPRESSION:1. | | Bilateral nephrolithiasis without evidence of obstruction.2. Benign appearing liver | | hypodensities. Job#: [id number] Read By: EDER STERN MD Released By: | | EDER STERN MDDate: 04/29/2015 09:49 | |There is a 3-mm calcification within the distal penis in the expected region of the urethra . A stone within the urethra should be considered. Prostate gland and seminal vesicles are age appropriate. | | | |The bowel gas pattern is nonobstructive. | | | |Aorta is normal in course and caliber. No pathologically enlarged lymph nodes. No acute guerline ne process. | | | |IMPRESSION: | |1. Bilateral nephrolithiasis without evidence of obstruction. | |2. Benign appearing liver hypodensities. | | | | | | | | | | | |Read By: EDER STERN MD | | | |Released By: EDER STERN MD | |Date: 04/29/2015 09:49 | | | | | + + documented in this encounter Visit Diagnoses Not on filedocumented in this encounter"
--- OUTSIDE RECORDS SUMMARY | ~2019-11-30 | XMS | Encounter Summary ---
Demographics + + + | Address | [address] | | | [place] [address] | + + + | Home Phone | | + + + | Preferred Language | Unknown | + + + | Marital Status | | + + + | Yazidism Affiliation | Unknown | + + + | Race | Unknown | + + + | Ethnic Group | Unknown | + + + Author + + + | Author | [facility] | | | and [place] | + + + | Organization | [facility] | | | [...] | | | [place] [address] | | + + + + + Care Team Providers + +------+ + | Care Coal Mill Operator Name | Role | Phone | + +------+ + PCP | Unavailable | + +------+ + Encounter Details +--------+ + + + + | Date | Type | Department | Care Team | Description | +--------+ + + + + | 10/08/ | Hospital | [facility] | Conversion | Spells of decreased | | 2019 | Encounter | CENTER | Transaction, | attentiveness | | | | NEURODIAGNOSTICS | Provider Unknown | | | | | [address] [facility] | | | | | | [place], [place] | (Fax) | | | | | [address] | | | | | | [phone] | | | +--------+ + + + [...] + + documented as of this encounter Medications at Time of Discharge + + + +---------+ + + | Medication | Sig | Dispensed | Refills | Start | End Date | | | | | | Date | | + + + +---------+ + + | ibuprofen | take 1 tablet by | | 0 | 08/19/19 | | | (ADVIL,MOTRIN) 600 | mouth with food or | | | 19 | | | MG tablet | milk three times a | | | | | | | day if needed | | | | | + + + +---------+ + + documented as of this encounter Plan of Treatment Not on filedocumented as of this encounter Visit Diagnoses + + | Diagnosis | + + | Spells of decreased attentiveness Other general symptoms | + + documented in this encounter"
--- OUTSIDE RECORDS SUMMARY | ~2019-11-30 | XMS | Encounter Summary ---
Demographics + + + | Address | [address] | | | [place] [address] | + + + | Home Phone | | + + + | Preferred Language | Unknown | + + + | Marital Status | | + + + | Hinduism Affiliation | Unknown | + + + | Race | Unknown | + + + | Ethnic Group | Unknown | + + + Author + + + | Author | [facility] | | | and [place] | + + + | Organization | [facility] | | | [...] | | | [place] [address] | | + + + + + Care Team Providers + +------+ + | Care Knuckle Strap Sewer Name | Role | Phone | + [...] | [address] [place] | [place] [address] | | | | | [address] | [phone] | | | | | [phone] | | | +--------+ + + + [...] - 1.030 | EXTERNAL | | | [place], | | | LAB | | | [...] Benign appearing liver | | hypodensities. Job#: [id number] Read By: EDER STERN MD Released By: [...]
--- OUTSIDE RECORDS SUMMARY | ~2019-11-30 | XMS | Encounter Summary ---
Demographics + + + | Address | [address] | | | [place] [address] | + + + | Home Phone | | + + + | Preferred Language | Unknown | + + + | Marital Status | | + + + | Temple Affiliation | Unknown | + + + | Race | Unknown | + + + | Ethnic Group | Unknown | + + + Author + + + | Author | [facility] | | | and [place] | + + + | Organization | [facility] | | [...] | | | [place] [address] | | + + + + + Care Team Providers + +------+ + | Care Solutions Operator Name | Role | Phone | + +------+ + PCP | Unavailable | + +------+ + Encounter Details +--------+ + + + + | Date | Type | Department | Care Team | Description | +--------+ + + + + | 01/21/ | Hospital | [facility] | Mike Hayward | | | 2014 | Encounter | HOSPITAL EMERGENCY | [address] | | | | | [address] | [address] | | | | | [address] [place] | [place] [address] | | | | | [address] | [phone] | | | | | [phone] | | | +--------+ + + + [...]
--- OUTSIDE RECORDS SUMMARY | ~2019-11-30 | XMS | Clinical Summary ---
Demographics + + + | Address | [address] | | | [place] [address] | + + + | Home Phone | | + + + | Preferred Language | Unknown | + + + | Marital Status | | + + + | Moravian Affiliation | Unknown | + + + | Race | Unknown | + + + | Ethnic Group | Unknown | + + + Author + + + | Author | [facility] | | | and [place] | + + + | Organization | [facility] | | [...] | | | [place] [address] | | + + + + + Care Team Providers + +------+ + | Care Assistant Superintendent Name | Role | Phone | + +------+ + | Debbei Mclain MD | PCP | | + [...] | [facility] | [facility] | [id number] | | [phone] | | Medica | [...] | [phone] | [place] [address] | | | ignacio | | | 4 (Home) | | + +--------+ +--------+ + + Advance Directives + + + + + | Type | Date Recorded | Patient | Explanation | | | | Serology Technician | | + + + + + | Power of | | | | | Multi Care Technician | | | | + + + + + | Advance | | | | | Directive | | | | + + + + +
--- OUTSIDE RECORDS SUMMARY | ~2019-11-30 | XMS | Encounter Summary ---
Demographics + + + | Address | [address] | | | [place] [address] | + + + | Home Phone | | + + + | Preferred Language | Unknown | + + + | Marital Status | | + + + | Muslim Affiliation | Unknown | + + + | Race | Unknown | + + + | Ethnic Group | Unknown | + + + Author + + + | Author | [facility] | | | and [place] | + + + | Organization | [facility] | | | [...] | | | [place] [address] | | + + + + + Care Team Providers + +------+ + | Care Automobile Mechanic Supervisor Name | Role | Phone | + [...] | [address] [place] | [place] [address] | | | | | [address] | [phone] | | | | | [phone] | | | +--------+ + + + [...]
--- OUTSIDE RECORDS SUMMARY | ~2019-11-30 | XMS | Encounter Summary ---
Demographics + + + | Address | [address] | | | [place] [address] | + + + | Home Phone | | + + + | Preferred Language | Unknown | + + + | Marital Status | | + + + | Catholic Affiliation | Unknown | + + + | Race | Unknown | + + + | Ethnic Group | Unknown | + + + Author + + + | Author | [facility] | | | and [place] | + + + | Organization | [facility] | | [...] | | | [place] [address] | | + + + + + Care Team Providers + +------+ + | Care Stringed Instrument Tuner Name | Role | Phone | + +------+ + PCP | Unavailable | + +------+ + Encounter Details +--------+ + + + + | Date | Type | Department | Care Team | Description | +--------+ + + + + | 04/13/ | Hospital | [facility] | Damaso Clark | | | 2008 | Encounter | HOSPITAL EMERGENCY | [address] | | | | | [address] | [facility] | | | | | [address] [place] [place] | [place] [address] | | | | | [address] | [phone] | | | | | [phone] | | | +--------+ + + + [...]
--- OUTSIDE RECORDS SUMMARY | ~2019-11-30 | XMS | Encounter Summary ---
Demographics + + + | Address | [address] | | | [place] [address] | + + + | Home Phone | | + + + | Preferred Language | Unknown | + + + | Marital Status | | + + + | Bahai Affiliation | Unknown | + + + | Race | Unknown | + + + | Ethnic Group | Unknown | + + + Author + + + | Author | [facility] | | | and [place] | + + + | Organization | [facility] | | | and [...] | | | [place] [address] | | + + + + + Care Team Providers + +------+ + | Care Milieu Coordinator Name | Role | Phone | + [...] | | | CENTER [address] | [facility] | | | | | [address] [place] [place] | [place] [address] | | | | | [address] | [phone] | | | | | [phone] | | | +--------+ + + + [...]
--- OUTSIDE RECORDS SUMMARY | ~2019-11-30 | XMS | Encounter Summary ---
Demographics + + + | Address | [address] | | | [place] [address] | + + + | Home Phone | | + + + | Preferred Language | Unknown | + + + | Marital Status | | + + + | Roman Catholic Affiliation | Unknown | + + + | Race | Unknown | + + + | Ethnic Group | Unknown | + + + Author + + + | Author | [facility] | | | and [place] | + + + | Organization | [facility] | | [...] | | | [place] [address] | | + + + + + Care Team Providers + +------+ + | Care Postpartum Nurse Name | Role | Phone | + +------+ + | Debbie Mclain MD | PCP | | + +------+ + Encounter Details +--------+ + + + + | Date | Type | Department | Care Team | Description | +--------+ + + + + | 02/07/ | Orders Only | [facility] | Ronnie Stearns, | Other symptoms and | | 2019 | | NEUROLOGY [address] | MD [address] | signs involving | | | | [address] | [address] | cognitive functions | | | | [place] | [place] [address] | and awareness | | | | [address] | [phone] | | | | | [phone] | | | +--------+ + + + [...]
--- OUTSIDE RECORDS SUMMARY | ~2019-11-30 | XMS | Encounter Summary ---
Demographics + + + | Address | [address] | | | [place] [address] | + + + | Home Phone | | + + + | Preferred Language | Unknown | + + + | Marital Status | | + + + | Orthodox Affiliation | Unknown | + + + | Race | Unknown | + + + | Ethnic Group | Unknown | + + + Author + + + | Author | [facility] | | | and [place] | + + + | Organization | [facility] | | [...] | | | [place] [address] | | + + + + + Care Team Providers + +------+ + | Care De Icer Kit Assembler Name | Role | Phone | + +------+ + | Debbie Mclain MD | PCP | | + +------+ + Encounter Details +--------+ + + + + | Date | Type | Department | Care Team | Description | +--------+ + + + + | 09/03/ | Orders Only | [facility] | Conversion | | | 2019 | | CONVERSION [address] | Transaction, | | | | | [address] | Provider Unknown | | | | | [place] | [phone] | | | | | [address] | | | | | | [phone] | | | +--------+ + + + [...]
--- OUTSIDE RECORDS SUMMARY | ~2019-11-30 | XMS | Encounter Summary ---
Demographics + + + | Address | [address] | | | [place] [address] | + + + | Home Phone | | + + + | Preferred Language | Unknown | + + + | Marital Status | | + + + | Moravian Affiliation | Unknown | + + + | Race | Unknown | + + + | Ethnic Group | Unknown | + + + Author + + + | Author | [facility] | | | and [place] | + + + | Organization | [facility] | | | [...] | | | [place] [address] | | + + + + + Care Team Providers + +------+ + | Care Percussion Tuner Name | Role | Phone | + +------+ + PCP | Unavailable | + +------+ + Encounter Details +--------+ + + + + | Date | Type | Department | Care Team | Description | +--------+ + + + + | 09/25/ | Hospital | [facility] | Conversion | Abnormal brain MRI; | | 2019 | Encounter | [facility] MRI [address] | Transaction, | Spells of decreased | | | | [address] | Provider Unknown | attentiveness | | | | [place] | [phone] | | | | | [address] | | | | | | [phone] | Ronnie Stearns MD | | | | | | [address] | | | | | | [place] | | | | | | [place] [address] | | | | | | [phone] | | | | | | | | +--------+ + + + [...] + + documented as of this encounter Last Filed Vital Signs + + + + + | Vital Sign | Reading | Time Taken | Comments | + + + + + | Blood Pressure | - | - | | + + + + + | Pulse | - | - | | + [...] + + + + | Weight | 81.6 kg (180 lb) | 09/25/2018 2:25 PM | | | | | PDT | | + + + + + | Height | - | - | | + + + + + | Body Mass Index | 28.19 | 09/03/2018 10:49 AM | | | | | PDT | | + + + + + documented in this encounter Medications at Time of Discharge [...] | + +--------+ + + + | MRI BRAIN W WO | Routin | 09/25/2018 | | Results for this | | CONTRAST | e | 3:25 PM | | procedure are in the | | | | PDT | | results section. | + +--------+ + + + documented in this encounter Results MRI Brain w wo Contrast (09/25/2018 3:25 PM PDT) + + | Specimen | + + | | + + + + + | Impressions | Performed At | + + + | 1. No evidence of acute ischemia. 2. Normal contrast enhanced | | | appearance of the brain. Signed by: Jr Mcneil Richard Sign | | | Date/Time: 09/26/2018 7:48 AM | | + + + + + + | Narrative | Performed At | + + + | MRI BRAIN WITHOUT AND WITH CONTRAST CLINICAL INFORMATION: Abnormal | | | brain MRI Spells of decreased attentiveness COMPARISON: None | | | PROCEDURE: Sagittal T1, axial FLAIR, axial T2, axial T1, axial | | | gradient susceptibility, axial T1 enhanced, coronal T1 enhanced and | | | axial DWI. Contrast: 8.0ml gadavist IV. FINDINGS: Brain: No | | | intracranial hemorrhage. No midline shift, pathologic enhancement, or | | | mass lesion. No cerebral edema, restricted diffusion, or evidence | | | of acute infarct. Ventricles and extra-axial fluid spaces: Normal. | | | Sella, suprasellar cistern, and orbits: Normal. Major vascular flow | | | voids: Normal. Calvarium and extracranial soft tissues: Normal. | | | Paranasal sinuses and mastoid air cells: Mild mucosal thickening is | | | seen of the bilateral maxillary sinus. | | + + + + + | Procedure Note | + + | Skyler Arboleda Conversion - 02/04/2019 11:16 PM PDT MRI BRAIN WITHOUT AND WITH CONTRAST | | CLINICAL INFORMATION: | | Abnormal brain MRI Spells of decreased attentiveness | | COMPARISON: | | None | | PROCEDURE: | | Sagittal T1, axial FLAIR, axial T2, axial T1, axial gradient | | susceptibility, axial T1 enhanced, coronal T1 enhanced and axial DWI. | | Contrast: 8.0ml gadavist IV. | | FINDINGS: | | Brain: No intracranial hemorrhage. No midline shift, pathologic | | enhancement, or mass lesion. No cerebral edema, restricted diffusion, | | or evidence of acute infarct. | | Ventricles and extra-axial fluid spaces: Normal. | | Sella, suprasellar cistern, and orbits: Normal. | | Major vascular flow voids: Normal. | | Calvarium and extracranial soft tissues: Normal. | | Paranasal sinuses and mastoid air cells: Mild mucosal thickening is | | seen of the bilateral maxillary sinus. | | IMPRESSION: | | 1. No evidence of acute ischemia. | | 2. Normal contrast enhanced appearance of the brain. | | Signed by: Jr Mcneil Richard | | Sign Date/Time: 09/26/2018 7:48 AM | + + documented in this encounter Visit Diagnoses + + | Diagnosis | + + | Abnormal brain MRI Nonspecific (abnormal) findings on radiological and other | | examination of skull and head | + + | Spells of decreased attentiveness Other general symptoms | + + documented in this encounter"
--- OUTSIDE RECORDS SUMMARY | ~2019-11-30 | XMS | Encounter Summary ---
Demographics + + + | Address | [address] | | | [place] [address] | + + + | Home Phone | | + + + | Preferred Language | Unknown | + + + | Marital Status | | + + + | Christian Affiliation | Unknown | + + + | Race | Unknown | + + + | Ethnic Group | Unknown | + + + Author + + + | Author | [facility] | | | and [place] | + + + | Organization | [facility] | | | and [...] | | | [place] [address] | | + + + + + Care Team Providers + +------+ + | Care Chimney Mechanic Name | Role | Phone | + [...] | | | | [place] | [phone] | | | | | [address] | | | | | | [phone] | | | +--------+ + + + [...]
--- OUTSIDE RECORDS SUMMARY | ~2019-11-30 | XMS | Encounter Summary ---
Demographics + + + | Address | [address] | | | [place] [address] | + + + | Home Phone | | + + + | Preferred Language | Unknown | + + + | Marital Status | | + + + | Confucianism Affiliation | Unknown | + + + | Race | Unknown | + + + | Ethnic Group | Unknown | + + + Author + + + | Author | [facility] | | | and [place] | + + + | Organization | [facility] | | | [...] | | | [place] [address] | | + + + + + Care Team Providers + +------+ + | Care Knotter Hand Name | Role | Phone | + +------+ + PCP | Unavailable | + +------+ + Encounter Details +--------+ + + + + | Date | Type | Department | Care Team | Description | +--------+ + + + + | 10/08/ | Hospital | [facility] | Conversion | Spells of decreased | | 2019 | Encounter | CENTER | Transaction, | attentiveness | | | | NEURODIAGNOSTICS | Provider Unknown | | | | | [address] [facility] | | | | | | [place], [place] | (Fax) | | | | | [address] | | | | | | [phone] | | | +--------+ + + + [...]
--- OUTSIDE RECORDS SUMMARY | ~2019-11-30 | XMS | Encounter Summary ---
Demographics + + + | Address | [address] | | | [place] [address] | + + + | Home Phone | | + + + | Preferred Language | Unknown | + + + | Marital Status | | + + + | Confucianist Affiliation | Unknown | + + + | Race | Unknown | + + + | Ethnic Group | Unknown | + + + Author + + + | Author | [facility] | | | and [place] | + + + | Organization | [facility] | | | [...] | | | [place] [address] | | + + + + + Care Team Providers + +------+ + | Care Factory Worker Name | Role | Phone | + +------+ + PCP | Unavailable | + +------+ + Encounter Details +--------+ + + + + | Date | Type | Department | Care Team | Description | +--------+ + + + + | 09/25/ | Hospital | [facility] | Conversion | Abnormal brain MRI; | | 2019 | Encounter | [facility] MRI [address] | Transaction, | Spells of decreased | | | | [address] | Provider Unknown | attentiveness | | | | [place] | [phone] | | | | | [address] | | | | | | [phone] | Ronnie Stearns MD | | | | | | [address] | | | | | | [address] [address] | | | | | | [place] [address] | | | | | | [phone] | | | | | | | [...]
--- OUTSIDE RECORDS SUMMARY | ~2019-11-30 | XMS | Encounter Summary ---
Demographics + + + | Address | [address] | | | [place] [address] | + + + | Home Phone | | + + + | Preferred Language | Unknown | + + + | Marital Status | | + + + | Tenriism Affiliation | Unknown | + + + | Race | Unknown | + + + | Ethnic Group | Unknown | + + + Author + + + | Author | [facility] | | | and [place] | + + + | Organization | [facility] | | | [...] | | | [place] [address] | | + + + + + Care Team Providers + +------+ + | Care Bandage Maker Name | Role | Phone | + +------+ + PCP | Unavailable | + +------+ + Encounter Details +--------+ + + + + | Date | Type | Department | Care Team | Description | +--------+ + + + + | 07/24/ | Hospital | [facility] | Conversion | Seizure (HCC); | | 2019 | Encounter | CENTER | Transaction, | Syncope, unspecified | | | | NEURODIAGNOSTICS | Provider Unknown | syncope type | | | | [address] [facility] | | | | | | [place], [place] | (Fax) | | | | | [address] | | | | | | [phone] | | | +--------+ + + + [...]
--- OUTSIDE RECORDS SUMMARY | ~2019-11-30 | XMS | Encounter Summary ---
Demographics + + + | Address | [address] | | | [place] [address] | + + + | Home Phone | | + + + | Preferred Language | Unknown | + + + | Marital Status | | + + + | Islam Affiliation | Unknown | + + + | Race | Unknown | + + + | Ethnic Group | Unknown | + + + Author + + + | Author | [facility] | | | and [place] | + + + | Organization | [facility] | | | [...] | | | [place] [address] | | + + + + + Care Team Providers + +------+ + | Care Local Sales Associate Name | Role | Phone | + [...] + + | 03/31/ | Telephone | [facility] | Ronnie Stearns, | Follow-up (cancel | | 2018 | | NEUROLOGY [address] | [address] | today's appointment | | | | [address] | [address] | 03/31) | | | | [place], [place] | [place] [address] | | | | | [address] | [phone] | | | | | [phone] | | | +--------+ + + + [...]
--- OUTSIDE RECORDS SUMMARY | 2019-11-30 11:46 | XMS ---
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 Scarlett has no Care Guidelines for this patient. Josefina VISIT COUNT (12 MO.) 1 [facility] 2 [facility] TOTAL 3 NOTE: Visits indicate total known visits. ED/UCC VISIT TRACKING (12 MO.) [facility]2019 [facility] [place] [facility] COMPLAINT: - FLANK PAIN, URINE PROBLEM 11/28/2019 09:55 [facility] TYPE: Emergency COMPLAINT: - flank pain DIAGNOSES: - Calculus of ureter - flank pain 09/01/2019 11:26 [facility] [place] [facility]: [facility] COMPLAINT: - HEADACHE DIAGNOSES: - Migraine, unspecified, not intractable, without status migrai - Headache INPATIENT VISIT TRACKING (12 MO.) No inpatient visits to display in this time frame [email or web address]
== END ==
LOC: ED 11:44
DX: N23 Unspecified renal colic (principal); Z79.899 Other long term (current) drug therapy
CPT/HCPCS: 74018; 80048; 85025; 96374; 96375; 96376; 99284-25; J1885; J2270

== ENCOUNTER 2021-05-14 16:31 | Emergency (ER) | payer OTHER ==
[~2021-05-14] VITALS: Ht 170.2 cm; Wt 83.0 kg
== END 2021-05-14 17:33 | disposition home or self-care (01) ==
LOC: ED 16:31
PROC: 0HQGXZZ Repair Left Hand Skin, External Approach (ICD-10-PCS; principal; 2021-05-14)
DX: S61.211A Laceration without foreign body of left index finger without damage to nail, initial encounter (principal); Z87.442 Personal history of urinary calculi; Z90.89 Acquired absence of other organs; Z23 Encounter for immunization; W29.3XXA Contact with powered garden and outdoor hand tools and machinery, initial encounter
CPT/HCPCS: 12002; 73140; 90471; 90715; 99283-25